=== PATIENT | male | born 1960 | race African-American/Black ===

== ENCOUNTER 2021-12-03 09:00 | Emergency (ER) | payer OTHER ==
[~2021-12-03] VITALS: Ht 175.3 cm; Wt 82.0 kg
[2021-12-03 09:03] VITALS: BP 156/103
[2021-12-03] MEDS ORDERED: ONDANSETRON HCL 4MG/2ML INJ IV STA (09:17)
[2021-12-03] MEDS ORDERED: SODIUM CHLORIDE 0.9% 1,000 ML IV ONE (09:30)
[2021-12-03 09:45] LABS: BASOPHILS % 0.3 % (0.0-2.0); HEMATOCRIT. 49.8 % (42.0-52.0); HEMOGLOBIN. 17.1 g/dL (14.0-18.0); LYMPHOCYTES % 8.3 % (20.0-50.0); MEAN CORPUSCULAR HEMOGLOBIN 32.2 pg (28.0-32.0); MEAN PLATELET VOLUME 7.4 fl (7.4-10.4); MONOCYTES % 5.2 % (2.0-8.0); NEUTROPHILS % 86.2 % (40.0-76.0); PLATELET 336 x1000/uL (130-400); RED CELL DISTRIBUTION WIDTH 12.5 % (11.6-14.6)
[2021-12-03 10:02] LABS: CHLORIDE 107 mEq/L (98-107)
[2021-12-03 10:08] LABS: ETHANOL BLOOD < 10 mg/dL
[2021-12-03] MEDS ORDERED: ONDA4TAB50 PO (10:56)
== END 2021-12-03 11:35 | disposition home or self-care (01) ==
LOC: ER 09:00
DX: A05.9 Bacterial foodborne intoxication, unspecified (principal)
CPT/HCPCS: 36415; 80053; 80320; 85025; 93005; 96361; 96374; 99284; J2405; J7030; G0480